=== PATIENT | female | born 1995 | race Caucasian/White ===

== ENCOUNTER 2017-06-27 21:51 | Emergency (ER) | payer MEDICAID ==
[~2017-06-27] VITALS: Ht 160 cm; Wt 131.8 kg
[2017-06-27] MEDS ORDERED: KETOROLAC 30 MG/1 ML ONE (22:21)
[2017-06-27] MEDS ORDERED: KETOROLAC 30 MG/1 ML IM ONE (22:30)
[2017-06-28 00:11] VITALS: BP 117/82
== END 2017-06-28 01:43 | disposition home or self-care (01) ==
LOC: ED 22:39
DX: S82.401A Unspecified fracture of shaft of right fibula, initial encounter for closed fracture (principal); X58.XXXA Exposure to other specified factors, initial encounter; Y93.89 Activity, other specified; Y99.8 Other external cause status; Y92.89 Other specified places as the place of occurrence of the external cause
CPT/HCPCS: 29515; 73610; 96372; 99284; J1885

== ENCOUNTER 2017-06-29 17:12 | Emergency (ER) | payer MEDICAID ==
[~2017-06-29] VITALS: Ht 157.5 cm; Wt 131.8 kg
[2017-06-29 17:53] VITALS: BP 132/83
[2017-06-29] MEDS ORDERED: IBUPROFEN 200 MG TABLET ONE (18:49)
[2017-06-29] MEDS ORDERED: IBUPROFEN 200 MG TABLET PO ONE (19:00)
== END 2017-06-29 20:00 | disposition home or self-care (01) ==
LOC: ED 19:45
DX: S63.521A Sprain of radiocarpal joint of right wrist, initial encounter (principal); G89.11 Acute pain due to trauma; F43.10 Post-traumatic stress disorder, unspecified; W01.0XXA Fall on same level from slipping, tripping and stumbling without subsequent striking against object, initial encounter; Y93.89 Activity, other specified; Y92.009 Unspecified place in unspecified non-institutional (private) residence as the place of occurrence of the external cause; Y99.8 Other external cause status
CPT/HCPCS: 99284

== ENCOUNTER 2017-11-23 17:56 | Emergency (ER) | payer MEDICAID ==
[~2017-11-23] VITALS: Ht 162.6 cm; Wt 144.7 kg
[2017-11-23 18:56] VITALS: BP 147/93
== END 2017-11-23 19:00 | disposition home or self-care (01) ==
LOC: ED 18:25
DX: S63.511A Sprain of carpal joint of right wrist, initial encounter (principal); S60.222A Contusion of left hand, initial encounter; F43.10 Post-traumatic stress disorder, unspecified; W19.XXXA Unspecified fall, initial encounter; Y93.89 Activity, other specified; Y92.410 Unspecified street and highway as the place of occurrence of the external cause; Y99.8 Other external cause status
CPT/HCPCS: 29125; 99284

== ENCOUNTER 2018-02-08 21:05 | Emergency (ER) | payer MEDICAID ==
[~2018-02-08] VITALS: Ht 157.5 cm; Wt 150.0 kg
[2018-02-08 21:12] VITALS: BP 164/102
[2018-02-08] MEDS ORDERED: HYDROcodone/APAP 5/325 TABLET PO STA (22:29)
[2018-02-08] MEDS ORDERED: HYDROcodone/APAP 5/325 TABLET ONE (22:33)
== END 2018-02-09 01:38 | disposition home or self-care (01) ==
LOC: ED 23:59
DX: S16.1XXA Strain of muscle, fascia and tendon at neck level, initial encounter (principal); S63.522A Sprain of radiocarpal joint of left wrist, initial encounter; S93.492A Sprain of other ligament of left ankle, initial encounter; J45.909 Unspecified asthma, uncomplicated; W01.0XXA Fall on same level from slipping, tripping and stumbling without subsequent striking against object, initial encounter; Y93.89 Activity, other specified; Y92.488 Other paved roadways as the place of occurrence of the external cause; Y99.8 Other external cause status
CPT/HCPCS: 29515; 72050; 72072; 82962; 99284

== ENCOUNTER 2018-06-09 17:51 | Emergency (ER) | payer MEDICAID ==
[~2018-06-09] VITALS: Ht 157.5 cm; Wt 141.2 kg
[2018-06-09 18:17] LABS: BASOPHILS # (AUTO) 0.02 x10^3/uL (0-0.1); BASOPHILS % (AUTO) 0 % (0-1); EOSINOPHILS # (AUTO) 0.34 x10^3/uL (0-0.4); EOSINOPHILS % (AUTO) 3 % (1-7); LYMPHOCYTES # (AUTO) 1.91 x10^3/uL (1-3.4); LYMPHOCYTES % (AUTO) 19 % (22-44); MD NO; MEAN CORPUSCULAR HGB CONC 34.6 g/dL (32.4-35.8); MEAN CORPUSCULAR VOLUME 86.9 fL (80-100); MEAN PLATELET VOLUME 7.8 fL (7.4-10.4); MONOCYTES # (AUTO) 0.36 x10^3/uL (0.2-0.8); MONOCYTES % (AUTO) 4 % (2-9); NEUTROPHILS # (AUTO) 7.45 x10^3/uL (1.8-6.8); NEUTROPHILS % (AUTO) 74 % (42-75); PLATELET COUNT 350 x10^3/uL (130-400); RED BLOOD COUNT 5.31 x10^6/uL (3.82-5.3); RED CELL DISTRIBUTION WIDTH 13.6 % (9.6-15.2)
[2018-06-09 18:27] LABS: ALANINE AMINOTRANSFERASE 94 U/L (12-78); ALBUMIN 3.5 g/dL (3.4-5.0); ANION GAP 7 mmol/L (5-15); CALCIUM 8.7 mg/dL (8.5-10.1); CHLORIDE 110 mmol/L (98-107); CREATININE 0.91 mg/dL (0.55-1.02)
[2018-06-09 18:29] LABS: ALKALINE PHOSPHATASE 90 U/L (45-117); BILIRUBIN,TOTAL 0.3 mg/dL (0.2-1.0); TOTAL PROTEIN 7.1 g/dL (6.4-8.2)
[2018-06-09] MEDS ORDERED: ONDANSETRON ODT 4 MG ONE (18:48)
[2018-06-09 18:58] LABS: MICROSCOPIC INDICATED
[2018-06-09 18:59] LABS: CULTURE INDICATED? NO
[2018-06-09] MEDS ORDERED: ONDANSETRON ODT 4 MG PO ONE (19:00)
[2018-06-09 19:32] VITALS: BP 168/95
== END 2018-06-09 19:35 | disposition home or self-care (01) ==
LOC: ED 19:20
DX: H92.03 Otalgia, bilateral (principal); M54.5 Low back pain; R30.0 Dysuria; R39.15 Urgency of urination; R30.9 Painful micturition, unspecified; F31.9 Bipolar disorder, unspecified; F41.1 Generalized anxiety disorder; F43.10 Post-traumatic stress disorder, unspecified; Z90.89 Acquired absence of other organs
CPT/HCPCS: 36415; 80053; 81001; 81025; 85025; 99283; Q0162

== ENCOUNTER 2018-07-06 10:31 | Emergency (ER) | payer MEDICAID ==
[~2018-07-06] VITALS: Ht 157.5 cm; Wt 140.0 kg
[2018-07-06] MEDS ORDERED: ALBUTEROL SULFATE 2.5 MG/3 ML NPPB ONE ×2 (11:00→13:00)
[2018-07-06] MEDS ORDERED: ALBUTEROL/IPRATROPIUM 2.5MG/0.5MG, 3 ML NPPB ONE (11:00)
[2018-07-06] MEDS ORDERED: ALBUTEROL/IPRATROPIUM 2.5MG/0.5MG, 3 ML ONE (11:37)
[2018-07-06] MEDS ORDERED: ALBUTEROL SULFATE 2.5 MG/3 ML ONE ×2 (11:42→12:59)
[2018-07-06] MEDS ORDERED: PROMETHAZINE 25 MG/ML, 1ML IM ONE (12:00)
[2018-07-06] MEDS ORDERED: PROMETHAZINE 25 MG/ML, 1ML ONE (12:26)
--- NOTE | 2018-07-06 13:02 | NUR ---
RT AT BEDSIDE FOR REPEAT TX.
[2018-07-06 13:04] VITALS: BP 37/88
--- NOTE | 2018-07-06 13:05 | NUR ---
D/C PER MD AFTER BREATHING TX.
[2018-07-07] MEDS ORDERED: PROM25TA10 PO (20:01)
[2018-07-07] MEDS ORDERED: MONT10TA9 PO (20:01)
[2018-07-07] MEDS ORDERED: PRED20TA PO (20:01)
[2018-07-07] MEDS ORDERED: CETI10TA18 PO (20:01)
[2018-07-07] MEDS ORDERED: PRAZ5CAP2 PO (20:01)
[2018-07-07] MEDS ORDERED: FLUT1BLS INH (20:01)
[2018-07-07] MEDS ORDERED: EPIN0.3P3 IM (20:01)
[2018-07-07] MEDS ORDERED: OMEP-110 PO (20:01)
[2018-07-07] MEDS ORDERED: FLUT15.88 NAS (20:01)
[2018-07-07] MEDS ORDERED: LAMO200T2 PO (20:01)
[2018-07-07] MEDS ORDERED: ONDA4TAB13 SL (20:01)
[2018-07-07] MEDS ORDERED: QUET100T PO (20:01)
[2018-07-07] MEDS ORDERED: RANI150T4 PO (20:01)
[2018-07-07] MEDS ORDERED: SERT100T5 PO (20:01)
[2018-07-07] MEDS ORDERED: DICL50TA4 PO (20:01)
[2018-07-07] MEDS ORDERED: CLON1TAB11 PO (20:01)
== END 2018-07-06 13:40 | disposition home or self-care (01) ==
LOC: ED 12:59
DX: J20.8 Acute bronchitis due to other specified organisms (principal); J01.80 Other acute sinusitis; J45.909 Unspecified asthma, uncomplicated; F31.9 Bipolar disorder, unspecified; F43.10 Post-traumatic stress disorder, unspecified; Z87.891 Personal history of nicotine dependence
CPT/HCPCS: 71046; 94640; 99285; J2550; J7512; J7613; J7620; 96372

== ENCOUNTER 2018-07-07 17:52 | Observation (INO) | payer MEDICAID ==
[~2018-07-07] VITALS: Ht 159.5 cm; Wt 144.9 kg
[2018-07-07] MEDS ORDERED: ALBUTEROL SULFATE 2.5 MG/3 ML ONE (18:07)
--- NOTE | 2018-07-07 18:09 | NUR ---
Dr. Merino at bedside to evaluate pt. RT at bedside. Pt on all monitors, sinus tach noted, O2 sat 96% on 2L NC.
[2018-07-07] MEDS ORDERED: ALBUTEROL/IPRATROPIUM 2.5MG/0.5MG, 3 ML NPPB SCH (18:30)
[2018-07-07] MEDS ORDERED: ALBUTEROL/IPRATROPIUM 2.5MG/0.5MG, 3 ML ONE (18:56)
--- NOTE | 2018-07-07 19:00 | NUR ---
Pt tearful and requesting ativan for anxiety r/t admission to hospital. Pt trialed on room air after 2nd breathing treatment. O2 sats noted to be 86%, MD notified.
[2018-07-07] MEDS ORDERED: LORazepam 2 MG/ML, 1ML ONE (19:24)
[2018-07-07] MEDS ORDERED: LORazepam 2 MG/ML, 1ML IVPush ONE (19:30)
--- NOTE | 2018-07-07 19:43 | NUR ---
PIV started, pt medicated per SEP. Dr. Calabrese at bedside to evaluate pt for admission.
[2018-07-07] MEDS ORDERED: SODIUM CHLORIDE 0.9% 1,000 ML IV SCH (19:54)
[2018-07-07] MEDS ORDERED: ONDANSETRON 2MG/ML, 2ML IVPush PRN (20:00)
[2018-07-07] MEDS ORDERED: GUAIFENESIN/DM 200-20MG, 10ML UDC PO PRN (20:00)
[2018-07-07] MEDS ORDERED: ACETAMINOPHEN 325 MG TABLET PO PRN (20:00)
[2018-07-07] MEDS ORDERED: ONDANSETRON ODT 4 MG PO PRN (20:00)
[2018-07-07] MEDS ORDERED: PRAZ5CAP2 PO (20:01)
[2018-07-07] MEDS ORDERED: ONDA4TAB13 SL (20:01)
[2018-07-07] MEDS ORDERED: RANI150T4 PO (20:01)
[2018-07-07] MEDS ORDERED: CETI10TA18 PO (20:01)
[2018-07-07] MEDS ORDERED: FLUT15.88 NAS (20:01)
[2018-07-07] MEDS ORDERED: PROM25TA10 PO (20:01)
[2018-07-07] MEDS ORDERED: PRED20TA PO (20:01)
[2018-07-07] MEDS ORDERED: QUET100T PO (20:01)
[2018-07-07] MEDS ORDERED: OMEP-110 PO (20:01)
[2018-07-07] MEDS ORDERED: SERT100T5 PO (20:01)
[2018-07-07] MEDS ORDERED: FLUT1BLS INH (20:01)
[2018-07-07] MEDS ORDERED: MONT10TA9 PO (20:01)
[2018-07-07] MEDS ORDERED: DICL50TA4 PO (20:01)
[2018-07-07] MEDS ORDERED: LAMO200T2 PO (20:01)
[2018-07-07] MEDS ORDERED: CLON1TAB11 PO (20:01)
[2018-07-07] MEDS ORDERED: EPIN0.3P3 IM (20:01)
--- NOTE | 2018-07-07 20:13 | NUR ---
Telephone SBAR report called to Lucio XAVIER. Pt made aware of new assignment.
[2018-07-07] MEDS ORDERED: PROMETHAZINE 25MG TABLET PO PRN (20:30)
[2018-07-07] MEDS ORDERED: FLUTICASONE NASAL SPRAY 16GM NAS PRN (20:30)
[2018-07-07 20:58] VITALS: BP 139/81
[2018-07-07] MEDS ORDERED: MONTELUKAST 10 MG TABLET PO SCH (21:00)
[2018-07-07] MEDS ORDERED: ALBUTEROL SULFATE 2.5 MG/3 ML NPPB SCH ×2 (21:00)
[2018-07-07] MEDS ORDERED: QUETIAPINE 100MG TABLET PO SCH (21:00)
[2018-07-07] MEDS ORDERED: ALBUTEROL/IPRATROPIUM 2.5MG/0.5MG, 3 ML NPPB PRN (21:00)
[2018-07-07] MEDS: BUDESONIDE 0.5 MG/2 ML INHA NPPB SCH (21:00)
[2018-07-07] MEDS: ALBUTEROL/IPRATROPIUM 2.5MG/0.5MG, 3 ML NPPB SCH (21:00)
[2018-07-07] MEDS ORDERED: LAMOTRIGINE 200 MG TABLET PO SCH (21:00)
[2018-07-07] MEDS ORDERED: PRAZOSIN 5 MG CAPSULE PO SCH (21:00)
[2018-07-07] MEDS: SERTRALINE 100MG TABLET PO SCH (21:52)
[2018-07-07] MEDS: FAMOTIDINE 20 MG TABLET PO SCH (21:52)
[2018-07-07] MEDS: DICLOFENAC 50 MG TABLET.DR PO SCH (21:53)
[2018-07-07 23:41] LABS: RAPID INFLUENZA A Negative (Negative); RAPID INFLUENZA B Negative (Negative)
[2018-07-08] MEDS ORDERED: TRAZODONE 50MG TABLET PO ONE (00:30)
[2018-07-08 00:41] VITALS: BP 130/75
[2018-07-08] MEDS: ALBUTEROL/IPRATROPIUM 2.5MG/0.5MG, 3 ML NPPB SCH ×3 (02:00→09:00)
[2018-07-08 07:22] VITALS: BP 116/76
[2018-07-08] MEDS ORDERED: FLUTICASONE/VILANTEROL 200-25MCG/INH INH SCH (09:00)
[2018-07-08] MEDS ORDERED: OMEPRAZOLE 20 MG CAPSULE.DR PO SCH (09:00)
[2018-07-08] MEDS ORDERED: MONTELUKAST 10 MG TABLET PO SCH (09:00)
[2018-07-08] MEDS ORDERED: PRAZOSIN 5 MG CAPSULE PO SCH (09:00)
[2018-07-08] MEDS: BUDESONIDE 0.5 MG/2 ML INHA NPPB SCH (09:00)
[2018-07-08] MEDS ORDERED: CETIRIZINE 10 MG TABLET PO SCH (09:00)
[2018-07-08] MEDS ORDERED: CYCL-259 PO (09:11)
[2018-07-08] MEDS: SERTRALINE 100MG TABLET PO SCH (09:38)
[2018-07-08] MEDS: DICLOFENAC 50 MG TABLET.DR PO SCH (09:38)
[2018-07-08] MEDS: FAMOTIDINE 20 MG TABLET PO SCH (09:38)
== END 2018-07-08 12:45 | disposition home or self-care (01) ==
LOC: ED 18:56 → EDIP 19:40 → INTOOBSV 19:40 → SUATTDRO 19:53 → 3NE 20:29 → DCLOUNGE 07-08 12:35
PROVIDERS: ADMIT Hospitalist; ATTEND Hospitalist
DX: J45.41 Moderate persistent asthma with (acute) exacerbation (principal); J40 Bronchitis, not specified as acute or chronic; F12.90 Cannabis use, unspecified, uncomplicated; F31.9 Bipolar disorder, unspecified; F43.10 Post-traumatic stress disorder, unspecified; Z23 Encounter for immunization
CPT/HCPCS: 87400; 90471; 90656; 94640; 96374; 99284; G0378; J2060; J7030; J7512; J7620; J7626

== ENCOUNTER 2018-11-20 20:57 | Emergency (ER) | payer MEDICAID ==
[~2018-11-20] VITALS: Ht 157.5 cm; Wt 137.6 kg
[~2018-11-20 20:57] MED LIST: CETI10TA18 PO; CLON1TAB11 PO; CYCL-259 PO; DICL50TA4 PO; EPIN0.3P3 IM; FLUT15.88 NAS; FLUT1BLS INH; LAMO200T2 PO; MONT10TA9 PO; OMEP-110 PO; ONDA4TAB13 SL; PRAZ5CAP2 PO; PRED20TA PO; PROM25TA10 PO; QUET100T PO; RANI150T4 PO; SERT100T32 PO
[2018-11-20 21:09] VITALS: BP 152/100
[2018-11-20] MEDS ORDERED: PANTOPRAZOLE 20MG TABLET ONE (21:29)
[2018-11-20] MEDS ORDERED: PROMETHAZINE 25 MG/ML, 1ML ONE (21:29)
[2018-11-20] MEDS ORDERED: ONDANSETRON ODT 4 MG ONE ×2 (21:29→21:42)
[2018-11-20] MEDS ORDERED: DICYCLOMINE 10 MG/ML, 2ML ONE (21:29)
[2018-11-20] MEDS ORDERED: PROMETHAZINE 25 MG/ML, 1ML IM ONE (21:30)
[2018-11-20] MEDS ORDERED: DICYCLOMINE 10 MG/ML, 2ML IM ONE (21:30)
[2018-11-20] MEDS ORDERED: PANTOPRAZOLE 20MG TABLET PO ONE (21:30)
[2018-11-20] MEDS ORDERED: ONDANSETRON ODT 4 MG PO ONE (21:30)
[2018-11-20 21:45] LABS: BASOPHILS # (AUTO) 0.08 x10^3/uL (0-0.1); BASOPHILS % (AUTO) 1 % (0-1); EOSINOPHILS # (AUTO) 0.02 x10^3/uL (0-0.4); EOSINOPHILS % (AUTO) 0 % (1-7); LYMPHOCYTES # (AUTO) 1.18 x10^3/uL (1-3.4); LYMPHOCYTES % (AUTO) 10 % (22-44); MD NO; MEAN CORPUSCULAR HGB CONC 32.2 g/dL (32.4-35.8); MEAN PLATELET VOLUME 7.8 fL (7.4-10.4); MONOCYTES # (AUTO) 0.26 x10^3/uL (0.2-0.8); MONOCYTES % (AUTO) 2 % (2-9); NEUTROPHILS # (AUTO) 10.87 x10^3/uL (1.8-6.8); NEUTROPHILS % (AUTO) 88 % (42-75); PLATELET COUNT 349 x10^3/uL (130-400); RED CELL DISTRIBUTION WIDTH 14.4 % (9.6-15.2)
--- NOTE | 2018-11-20 21:49 | NUR ---
pt in room with partner at bedside. pt medicated per order, ua sent.
[2018-11-20 21:55] LABS: ALANINE AMINOTRANSFERASE 60 U/L (12-78); ALBUMIN 3.7 g/dL (3.4-5.0); ANION GAP 9 mmol/L (5-15); CALCIUM 8.8 mg/dL (8.5-10.1); CHLORIDE 109 mmol/L (98-107); CREATININE 0.88 mg/dL (0.55-1.02)
[2018-11-20 21:57] LABS: MICROSCOPIC AUTO
[2018-11-20 21:59] LABS: CULTURE INDICATED? YES
[2018-11-20 22:00] LABS: ALKALINE PHOSPHATASE 83 U/L (45-117); TOTAL PROTEIN 7.8 g/dL (6.4-8.2)
[2018-11-20 22:01] LABS: BILIRUBIN,TOTAL < 0.1 mg/dL (0.2-1.0)
== END 2018-11-20 22:55 | disposition home or self-care (01) ==
LOC: ED 22:12
DX: R10.84 Generalized abdominal pain (principal); R11.2 Nausea with vomiting, unspecified; J45.909 Unspecified asthma, uncomplicated
CPT/HCPCS: 36415; 74022; 80053; 81001; 83690; 84703; 85025; 87086; 93005; 96372; 99284; J0500; J2550; Q0162

== ENCOUNTER 2018-12-02 11:46 | Emergency (ER) | payer MEDICAID ==
[~2018-12-02] VITALS: Ht 160 cm; Wt 136.9 kg
[2018-12-02] MEDS ORDERED: ONDANSETRON 2MG/ML, 2ML ONE (12:19)
[2018-12-02] MEDS ORDERED: FAMOTIDINE 20 MG/2 ML ONE (12:19)
[2018-12-02 12:28] LABS: BASOPHILS # (AUTO) 0.05 x10^3/uL (0-0.1); BASOPHILS % (AUTO) 0 % (0-1); EOSINOPHILS # (AUTO) 0.89 x10^3/uL (0-0.4); EOSINOPHILS % (AUTO) 7 % (1-7); LYMPHOCYTES # (AUTO) 1.68 x10^3/uL (1-3.4); LYMPHOCYTES % (AUTO) 14 % (22-44); MD NO; MEAN CORPUSCULAR HEMOGLOBIN 26.8 pg (27.0-34.8); MEAN CORPUSCULAR HGB CONC 32.7 g/dL (32.4-35.8); MEAN CORPUSCULAR VOLUME 82.2 fL (80-100); MEAN PLATELET VOLUME 7.5 fL (7.4-10.4); MONOCYTES % (AUTO) 2 % (2-9); NEUTROPHILS # (AUTO) 9.33 x10^3/uL (1.8-6.8); NEUTROPHILS % (AUTO) 76 % (42-75); PLATELET COUNT 282 x10^3/uL (130-400); RED BLOOD COUNT 5.79 x10^6/uL (3.82-5.3)
[2018-12-02] MEDS ORDERED: FAMOTIDINE 20 MG/2 ML IVP ONE (12:30)
[2018-12-02] MEDS ORDERED: ONDANSETRON 2MG/ML, 2ML IVPush ONE (12:30)
[2018-12-02] MEDS ORDERED: SODIUM CHLORIDE FLUSH 10ML SYR IVF ONE (12:30)
[2018-12-02] MEDS ORDERED: SODIUM CHLORIDE 0.9% 1,000ML IVBOLUS ONE (12:30)
[2018-12-02 12:39] LABS: ALBUMIN 3.6 g/dL (3.4-5.0); ANION GAP 7 mmol/L (5-15); CALCIUM 8.8 mg/dL (8.5-10.1); CHLORIDE 106 mmol/L (98-107)
[2018-12-02 12:44] LABS: ALANINE AMINOTRANSFERASE 51 U/L (12-78); ALKALINE PHOSPHATASE 94 U/L (45-117); BILIRUBIN,TOTAL 0.4 mg/dL (0.2-1.0); CREATININE 0.86 mg/dL (0.55-1.02); TOTAL PROTEIN 7.6 g/dL (6.4-8.2)
--- NOTE | 2018-12-02 13:08 | NUR ---
pt in bed at this time. iv access established. ns bolus and pt medicater per order. no episodes of n/v/d while in the room. pt states stomach feels uneasy. pt expresses no wants or needs at this time. room lighting lowered at pt request. call light in reach and bed is low and locked. pt encouraged to call rn for any needs or concerns.
[2018-12-02 13:31] VITALS: BP 130/89
[2018-12-02 13:59] LABS: MICROSCOPIC INDICATED
[2018-12-02 14:00] LABS: CULTURE INDICATED? YES
[2018-12-02] MEDS ORDERED: OMNIPAQUE 350 MG/ML, 150 ML BOTTLE ONE (14:11)
== END 2018-12-02 15:17 | disposition home or self-care (01) ==
LOC: ED 12:17
DX: R11.2 Nausea with vomiting, unspecified (principal); R19.7 Diarrhea, unspecified; J45.909 Unspecified asthma, uncomplicated; Z87.891 Personal history of nicotine dependence
CPT/HCPCS: 36415; 74177; 80053; 81001; 83690; 84703; 85025; 87086; 96361; 96374; 96375; 99284; J2405; J3490; J7030; Q9967

== ENCOUNTER 2018-12-30 10:04 | Emergency (ER) | payer MEDICAID ==
[~2018-12-30] VITALS: Ht 157.5 cm; Wt 137.4 kg
--- NOTE | 2018-12-30 10:21 | NUR ---
pt given gown.
[2018-12-30] MEDS ORDERED: SODIUM CHLORIDE FLUSH 10ML SYR IVF ONE (10:30)
[2018-12-30] MEDS ORDERED: FAMOTIDINE 20 MG/2 ML IVP ONE (10:30)
[2018-12-30] MEDS ORDERED: ONDANSETRON 2MG/ML, 2ML IVPush ONE (10:30)
[2018-12-30] MEDS ORDERED: MAALOX/HYOSCYAMINE/LIDOCAINE 45 ML BTL PO ONE (10:30)
--- NOTE | 2018-12-30 10:34 | NUR ---
23 Y/O FEMALE PRESENTS TO ED WITH C/O EPIGASTRIC PAIN X 3 DAYS. PER PT "I'VE HAD THIS PAIN FOR 3 DAYS. I DIDN'T COME IN SOONER BECAUSE I WAS JUST HERE IN NOV[place]." PT NOW TEARFUL. WHEN PT WAS GIVEN GOWN, SHE WAS SITTING ON GURNEY, NO TEARS, ON CELL PHONE., SHE WAS AMBULATORY TO ROOM. PT PLACED ON CONT PULSE OX, NIBP. NO C/O V/D, TRAUMA, SYNCOPE, CP, SOB.
[2018-12-30 10:54] LABS: BASOPHILS # (AUTO) 0.01 x10^3/uL (0-0.1); BASOPHILS % (AUTO) 0 % (0-1); EOSINOPHILS # (AUTO) 0.44 x10^3/uL (0-0.4); EOSINOPHILS % (AUTO) 4 % (1-7); LYMPHOCYTES # (AUTO) 1.45 x10^3/uL (1-3.4); LYMPHOCYTES % (AUTO) 12 % (22-44); MD NO; MEAN CORPUSCULAR HEMOGLOBIN 27.3 pg (27.0-34.8); MEAN CORPUSCULAR VOLUME 82.7 fL (80-100); MEAN PLATELET VOLUME 8.1 fL (7.4-10.4); MONOCYTES % (AUTO) 2 % (2-9); NEUTROPHILS # (AUTO) 10.03 x10^3/uL (1.8-6.8); NEUTROPHILS % (AUTO) 82 % (42-75); PLATELET COUNT 243 x10^3/uL (130-400); RED CELL DISTRIBUTION WIDTH 15.1 % (9.6-15.2)
[2018-12-30] MEDS ORDERED: ONDANSETRON 2MG/ML, 2ML ONE (11:03)
[2018-12-30] MEDS ORDERED: FAMOTIDINE 20 MG/2 ML ONE (11:04)
[2018-12-30] MEDS ORDERED: MAALOX/HYOSCYAMINE/LIDOCAINE 45 ML BTL ONE (11:04)
[2018-12-30 11:08] LABS: ALBUMIN 3.4 g/dL (3.4-5.0); ANION GAP 6 mmol/L (5-15); CALCIUM 8.4 mg/dL (8.5-10.1); CHLORIDE 106 mmol/L (98-107)
[2018-12-30 11:14] LABS: ALANINE AMINOTRANSFERASE 46 U/L (12-78); ALKALINE PHOSPHATASE 79 U/L (45-117); BILIRUBIN,TOTAL 0.4 mg/dL (0.2-1.0); CREATININE 0.74 mg/dL (0.55-1.02); TOTAL PROTEIN 7.1 g/dL (6.4-8.2)
--- NOTE | 2018-12-30 11:29 | NUR ---
PT RESTING ON GURNEY. NO ACUTE DISTRESS NOTED. MEDICATIONS ADMINISTERED PER EMAR. PT NOT TEARFUL AT THIS TIME. NO NEEDS REQUESTED AT THIS TIME.
--- NOTE | 2018-12-30 11:48 | NUR ---
PT AMBULATORY WITH STEADY GAIT FROM BATHROOM. UA SENT TO LAB. NO ACUTE DI STRESS NOTED. NO NEEDS REQUESTED AT THIS TIME.
[2018-12-30 11:49] VITALS: BP 131/89
[2018-12-30 12:12] LABS: MICROSCOPIC INDICATED
[2018-12-30 12:37] LABS: CULTURE INDICATED? NO
== END 2018-12-30 12:56 | disposition home or self-care (01) ==
LOC: ED 11:34
DX: K52.9 Noninfective gastroenteritis and colitis, unspecified (principal); J45.909 Unspecified asthma, uncomplicated; Z90.49 Acquired absence of other specified parts of digestive tract
CPT/HCPCS: 36415; 80053; 81001; 83690; 84703; 85025; 96374; 96375; 99283; J2405; J3490

== ENCOUNTER 2019-02-14 06:48 | Emergency (ER) | payer MEDICAID ==
[~2019-02-14] VITALS: Ht 160 cm; Wt 140.3 kg
[2019-02-14 06:49] VITALS: BP 151/96
== END 2019-02-14 08:18 | disposition home or self-care (01) ==
LOC: ED 08:03
DX: S73.101A Unspecified sprain of right hip, initial encounter (principal); S83.91XA Sprain of unspecified site of right knee, initial encounter; S93.401A Sprain of unspecified ligament of right ankle, initial encounter; E66.01 Morbid (severe) obesity due to excess calories; F25.9 Schizoaffective disorder, unspecified; F31.9 Bipolar disorder, unspecified; F43.10 Post-traumatic stress disorder, unspecified; Z68.43 Body mass index [BMI] 50.0-59.9, adult; J45.909 Unspecified asthma, uncomplicated; Z79.899 Other long term (current) drug therapy; Z88.8 Allergy status to other drugs, medicaments and biological substances; Z90.49 Acquired absence of other specified parts of digestive tract; W01.0XXA Fall on same level from slipping, tripping and stumbling without subsequent striking against object, initial encounter; Y93.89 Activity, other specified; Y92.009 Unspecified place in unspecified non-institutional (private) residence as the place of occurrence of the external cause; Y99.8 Other external cause status
CPT/HCPCS: 99283

== ENCOUNTER 2019-05-24 19:50 | Emergency (ER) | payer MEDICAID ==
[~2019-05-24] VITALS: Ht 160 cm; Wt 149.8 kg
[~2019-05-24 19:50] MED LIST changes: +FLUT15.845 NAS; -FLUT15.88 NAS
[2019-05-24] MEDS ORDERED: LORA-446 PO (20:36)
[2019-05-24] MEDS ORDERED: SUCR1TAB33 PO (20:36)
[2019-05-24] MEDS ORDERED: METF500T17 PO (20:36)
[2019-05-24] MEDS ORDERED: BACL20TA PO (20:36)
--- NOTE | 2019-05-24 20:37 | NUR ---
HIMANSHU IN ROOM WITH PARTENERS. REQUESTS TO BE CALLED "MIO". IDS GENDERQUEER. LAYING IN HOSPITAL BED. CALL LIGHT WITHIN REACH.
[2019-05-24 21:23] LABS: BASOPHILS # (AUTO) 0.04 x10^3/uL (0-0.1); BASOPHILS % (AUTO) 0 % (0-1); EOSINOPHILS # (AUTO) 0.28 x10^3/uL (0-0.4); EOSINOPHILS % (AUTO) 3 % (1-7); LYMPHOCYTES # (AUTO) 2.42 x10^3/uL (1-3.4); LYMPHOCYTES % (AUTO) 24 % (22-44); MD NO; MEAN CORPUSCULAR HEMOGLOBIN 23.6 pg (27.0-34.8); MEAN CORPUSCULAR HGB CONC 32.2 g/dL (32.4-35.8); MEAN CORPUSCULAR VOLUME 73.2 fL (80-100); MEAN PLATELET VOLUME 7.9 fL (7.4-10.4); MONOCYTES # (AUTO) 0.39 x10^3/uL (0.2-0.8); MONOCYTES % (AUTO) 4 % (2-9); NEUTROPHILS # (AUTO) 6.76 x10^3/uL (1.8-6.8); NEUTROPHILS % (AUTO) 68 % (42-75); PLATELET COUNT 293 x10^3/uL (130-400); RED BLOOD COUNT 5.08 x10^6/uL (3.82-5.3); RED CELL DISTRIBUTION WIDTH 16.2 % (9.6-15.2)
[2019-05-24] MEDS ORDERED: MAALOX/HYOSCYAMINE/LIDOCAINE 45 ML BTL ONE (21:29)
[2019-05-24] MEDS ORDERED: MAALOX/HYOSCYAMINE/LIDOCAINE 45 ML BTL PO ONE (21:30)
[2019-05-24 21:35] LABS: ALANINE AMINOTRANSFERASE 79 U/L (12-78); ALBUMIN 3.4 g/dL (3.4-5.0); ANION GAP 6 mmol/L (5-15); CHLORIDE 103 mmol/L (98-107); CREATININE 0.96 mg/dL (0.55-1.02)
[2019-05-24 21:37] LABS: ALKALINE PHOSPHATASE 75 U/L (45-117); BILIRUBIN,TOTAL 0.2 mg/dL (0.2-1.0); TOTAL PROTEIN 7.4 g/dL (6.4-8.2)
[2019-05-24 22:40] VITALS: BP 131/79
== END 2019-05-24 22:41 | disposition home or self-care (01) ==
LOC: ED 22:05
DX: K29.00 Acute gastritis without bleeding (principal); E11.65 Type 2 diabetes mellitus with hyperglycemia; F31.9 Bipolar disorder, unspecified; J45.909 Unspecified asthma, uncomplicated; F20.9 Schizophrenia, unspecified; F43.10 Post-traumatic stress disorder, unspecified; E66.01 Morbid (severe) obesity due to excess calories; Z68.43 Body mass index [BMI] 50.0-59.9, adult
CPT/HCPCS: 36415; 71046; 80053; 83690; 85025; 93005; 99284

== ENCOUNTER 2019-06-13 14:01 | Emergency (ER) | payer MEDICAID ==
[~2019-06-13] VITALS: Ht 160 cm; Wt 144.6 kg
[~2019-06-13 14:01] MED LIST changes: +BACL20TA PO; +LORA-446 PO; +METF500T17 PO; +SUCR1TAB33 PO
[2019-06-13 14:25] VITALS: BP 152/107
--- NOTE | 2019-06-13 14:29 | NUR ---
PT HERE FOR SUDDEN ONSET OF SHARP SHOOTING PAIN IN BACK THAT LED TO HAND AND FEET NUMBNESS. PT REPORTS SITTING ON COUCH WHILE THIS OCCURED. PT AMBULATED WITHOUT DIFFICULTY OR SHORTNESS OF BREATH. PT WALKED TO ROOM, ON MONITORS. CALL LIGHT IN REACH. AWAITING FURTHER ORDERS AT THIS TIME.
[2019-06-13] MEDS ORDERED: LORazepam 1MG TABLET ONE (14:42)
--- NOTE | 2019-06-13 14:45 | NUR ---
PT MEDCIATED PER EMAR.
[2019-06-13] MEDS ORDERED: LORazepam 1MG TABLET PO ONE (15:00)
[2019-06-13 15:06] LABS: ANION GAP 6 mmol/L (5-15); CALCIUM 8.6 mg/dL (8.5-10.1); CHLORIDE 100 mmol/L (98-107); CREATININE 0.93 mg/dL (0.55-1.02)
[2019-06-13] MEDS ORDERED: INSULIN REGULAR 100 UNITS/ML, 3ML VIAL SQ-INSULIN ONE (15:15)
[2019-06-13] MEDS ORDERED: INSULIN SINGLE DOSE, ER ONE (15:19)
--- NOTE | 2019-06-13 15:25 | NUR ---
PT GIVEN INSULIN.
[2019-06-13 15:29] LABS: BASOPHILS # (AUTO) 0.09 x10^3/uL (0-0.1); BASOPHILS % (AUTO) 1 % (0-1); EOSINOPHILS # (AUTO) 0.24 x10^3/uL (0-0.4); EOSINOPHILS % (AUTO) 3 % (1-7); LYMPHOCYTES # (AUTO) 1.99 x10^3/uL (1-3.4); LYMPHOCYTES % (AUTO) 24 % (22-44); MD NO; MEAN CORPUSCULAR HGB CONC 30.8 g/dL (32.4-35.8); MEAN CORPUSCULAR VOLUME 71.6 fL (80-100); MEAN PLATELET VOLUME 8.1 fL (7.4-10.4); MONOCYTES # (AUTO) 0.23 x10^3/uL (0.2-0.8); MONOCYTES % (AUTO) 3 % (2-9); NEUTROPHILS # (AUTO) 5.63 x10^3/uL (1.8-6.8); NEUTROPHILS % (AUTO) 69 % (42-75); PLATELET COUNT 275 x10^3/uL (130-400); RED BLOOD COUNT 5.49 x10^6/uL (3.82-5.3)
--- NOTE | 2019-06-13 16:15 | NUR ---
NEW BG COMPLETED, PA INFORMED.
--- NOTE | 2019-06-13 16:35 | NUR ---
Pt d/c'd to selfcare. Pt educated on diabetes management, proper f/u, prescriptions and community resources. Pt ambulated out of ER.
[2019-06-13 16:40] LABS: ACETONE, SERUM Trace (10mg/dL) mg/dL (Negative)
== END 2019-06-13 16:34 ==
LOC: ED 16:28
DX: E11.65 Type 2 diabetes mellitus with hyperglycemia (principal); F41.1 Generalized anxiety disorder; F20.9 Schizophrenia, unspecified; F31.9 Bipolar disorder, unspecified; F43.10 Post-traumatic stress disorder, unspecified; Z87.19 Personal history of other diseases of the digestive system; Z72.9 Problem related to lifestyle, unspecified; Z79.84 Long term (current) use of oral hypoglycemic drugs; Z79.899 Other long term (current) drug therapy; Z90.49 Acquired absence of other specified parts of digestive tract
CPT/HCPCS: 36415; 80048; 82010; 82800; 82962; 85025; 96372; 99283; J1815

== ENCOUNTER 2019-07-28 23:03 | Emergency (ER) | payer MEDICAID ==
[~2019-07-28] VITALS: Ht 160 cm; Wt 140.8 kg
[2019-07-28 23:08] VITALS: BP 129/75
== END 2019-07-29 01:03 | disposition home or self-care (01) ==
LOC: ED 07-29 00:11
DX: J02.8 Acute pharyngitis due to other specified organisms (principal); H60.501 Unspecified acute noninfective otitis externa, right ear; E11.9 Type 2 diabetes mellitus without complications; Z90.49 Acquired absence of other specified parts of digestive tract
CPT/HCPCS: 87081; 87880; 99283

== ENCOUNTER 2019-08-09 16:20 | Emergency (ER) | payer MEDICAID ==
[~2019-08-09] VITALS: Ht 157.5 cm; Wt 143.4 kg
[~2019-08-09 16:20] MED LIST changes: -LAMO200T2 PO; +LAMO200T6 PO; +MONT10TA11 PO; -MONT10TA9 PO
[2019-08-09 16:29] VITALS: BP 168/120
[2019-08-09] MEDS ORDERED: KETOROLAC 60 MG/2 ML ONE (19:49)
[2019-08-09] MEDS ORDERED: KETOROLAC 30 MG/1 ML IM ONE (20:00)
--- NOTE | 2019-08-09 20:17 | NUR ---
PT MEDICATED PER EMAR. 5 RIGHTS ADDRESSED.
--- NOTE | 2019-08-09 20:25 | NUR ---
Patient/Caregiver given discharge instructions and they have confirmed that they understand the instructions. Patient ambulatory with steady gait.
== END 2019-08-09 20:33 | disposition home or self-care (01) ==
LOC: EDSEX 20:29 → ED 20:29
DX: M94.0 Chondrocostal junction syndrome [Tietze] (principal); R06.02 Shortness of breath; R07.9 Chest pain, unspecified; E11.9 Type 2 diabetes mellitus without complications; Z90.89 Acquired absence of other organs; Z90.49 Acquired absence of other specified parts of digestive tract
CPT/HCPCS: 71046; 93005; 96372; 99283; J1885

== ENCOUNTER 2019-12-02 19:41 | Emergency (ER) | payer MEDICAID ==
[~2019-12-02] VITALS: Ht 160 cm; Wt 134.5 kg
[2019-12-02] MEDS ORDERED: HYDROcodone/APAP 5/325 TABLET PO ONE ×2 (20:00→21:30)
--- NOTE | 2019-12-02 20:00 | NUR ---
DR. MCALLISTER AWARE OF HR BEING 130 AND WANTS TO SEE IF PAIN MEDICATION WILL HELP LOWER HR.
[2019-12-02] MEDS ORDERED: HYDROcodone/APAP 5/325 TABLET ONE ×2 (20:03→21:34)
--- NOTE | 2019-12-02 21:40 | NUR ---
PAIN MEDICINE REPEATED AND T STILL TACHY AT 130. PT BORMALLY TAKES METOPROLOL AT NOC BUT HAS NOT TAKEN NIGHTLY DOSE. DR. MCALLISTER AWARE OF HR.
--- NOTE | 2019-12-02 22:04 | NUR ---
RECEIVED REPORT FROM MURALI XAVIER, ASSUMING CARE OF PT
[2019-12-02 22:10] LABS: BASOPHILS # (AUTO) 0.02 x10^3/uL (0-0.1); BASOPHILS % (AUTO) 0 % (0-1); EOSINOPHILS # (AUTO) 0.12 x10^3/uL (0-0.4); EOSINOPHILS % (AUTO) 1 % (1-7); LYMPHOCYTES % (AUTO) 20 % (22-44); MD NO; MEAN CORPUSCULAR HEMOGLOBIN 24.3 pg (27.0-34.8); MEAN CORPUSCULAR HGB CONC 32.5 g/dL (32.4-35.8); MEAN CORPUSCULAR VOLUME 74.7 fL (80-100); MEAN PLATELET VOLUME 8.7 fL (7.4-10.4); MONOCYTES # (AUTO) 0.37 x10^3/uL (0.2-0.8); MONOCYTES % (AUTO) 3 % (2-9); NEUTROPHILS # (AUTO) 9.32 x10^3/uL (1.8-6.8); NEUTROPHILS % (AUTO) 76 % (42-75); PLATELET COUNT 338 x10^3/uL (130-400); RED CELL DISTRIBUTION WIDTH 17.6 % (9.6-15.2)
[2019-12-02 22:17] LABS: ALBUMIN 3.4 g/dL (3.4-5.0); ANION GAP 10 mmol/L (5-15); CALCIUM 9.1 mg/dL (8.5-10.1); CHLORIDE 101 mmol/L (98-107); CREATININE 0.93 mg/dL (0.55-1.02)
--- NOTE | 2019-12-02 22:58 | NUR ---
CT CALLED TO FOLLOW UP ON READ, CURRENTLY BEING READ AT THIS TIME
[2019-12-02 23:04] VITALS: BP 133/67
--- NOTE | 2019-12-02 23:04 | NUR ---
REPORT FROM MELLY MATOS RN.
--- NOTE | 2019-12-02 23:07 | NUR ---
REPORT GIVEN TO LORENA
[2019-12-02] MEDS ORDERED: CLINDAMYCIN 300 MG CAPSULE ONE (23:40)
[2019-12-03] MEDS ORDERED: CLINDAMYCIN 300 MG CAPSULE PO ONE
[2019-12-03] MEDS ORDERED: OMNIPAQUE 350 MG/ML, 100ML BOTTLE ONE (21:30)
== END 2019-12-02 23:57 | disposition home or self-care (01) ==
LOC: ED 22:10
DX: K11.20 Sialoadenitis, unspecified (principal); E11.9 Type 2 diabetes mellitus without complications; J45.909 Unspecified asthma, uncomplicated; F20.9 Schizophrenia, unspecified; Z90.49 Acquired absence of other specified parts of digestive tract; Z90.89 Acquired absence of other organs
CPT/HCPCS: 36415; 70487; 80048; 82040; 84703; 85025; 99285; Q9967

== ENCOUNTER 2019-12-05 18:04 | Emergency (ER) | payer MEDICAID ==
[~2019-12-05] VITALS: Ht 160 cm; Wt 135.1 kg
[2019-12-05 18:14] VITALS: BP 107/57
== END 2019-12-05 20:06 | disposition home or self-care (01) ==
LOC: ED 19:20
DX: R22.0 Localized swelling, mass and lump, head (principal); J45.909 Unspecified asthma, uncomplicated; E11.9 Type 2 diabetes mellitus without complications; E66.01 Morbid (severe) obesity due to excess calories; Z68.43 Body mass index [BMI] 50.0-59.9, adult; Z90.89 Acquired absence of other organs; Z90.49 Acquired absence of other specified parts of digestive tract
CPT/HCPCS: 99283

== ENCOUNTER 2020-07-19 16:27 | Emergency (ER) | payer MEDICAID ==
[~2020-07-19] VITALS: Ht 160 cm; Wt 130.0 kg
[~2020-07-19 16:27] MED LIST changes: -MONT10TA11 PO; +MONT10TA96 PO
--- NOTE | 2020-07-19 16:37 | NUR ---
THIS IS A 24 YO F BIB EMS W/ C/O GLF AFTER SMOKING MARIJUANA. PT DENIES LOC/HITTING HEAD/BLOOD THINNERS. NOW HAS C/O RT KNEE AND RT ANKLE PAIN. PT REPORTS TOOK LISINOPRIL AND METOPROLOL THIS MORNING PRESCRIBED. PT HYPOTENSIVE, OTHER VS WDL. PT RESTING ON GURNEY W/ CALL LIGHT IN REACH AND SIDE RAILS UPX2. DROWSY, ANSWERING QUESTIONS APPROPRIATELY. ED MD STUDENT AT BEDSIDE FOR ED EVAL.
--- NOTE | 2020-07-19 17:05 | NUR ---
PT ALSO REPORTS 1MG ATIVAN AT 0900.
--- NOTE | 2020-07-19 17:27 | NUR ---
RAD IN ROOM.
[2020-07-19] MEDS ORDERED: SODIUM CHLORIDE 0.9% 1,000ML IVBOLUS ONE ×2 (17:30→19:00)
--- NOTE | 2020-07-19 17:55 | NUR ---
PIV STARTED, 1L NS BOLUS STARTED. PT RESTING ON GURNEY W/ CALL LIGHT IN REACH AND SIDE RAILS UPX2. PT HYPOTENSIVE, OTHER VS WDL. CONNECTED TO ALL MONITORING. AWAITING XRAY RESULTS.
--- NOTE | 2020-07-19 18:54 | NUR ---
REPORT GIVEN TO RAFIA XAVIER. UPDATED ON POC FOR 2ND L BOLUS, SPLINT AND REASSESS FOR DC. PT BP 94/58, OTHER VS WDL. RESP EVEN AND UNLABORED, NADN.
[2020-07-19 20:04] VITALS: BP 99/58
--- NOTE | 2020-07-19 20:25 | NUR ---
PT AMBULATORY AT BEDSIDE WITH WALKER, STEADY GAIT, ABLE TO BEAR WEIGHT ON INJURED LEG. PT EDUCATED REGARDING ANTIHYPERTENSIVES SHE TAKES AT HOME, NOT TO TAKE THEM ANYMORE UNTIL SHE TALKS TO HER PERSCRIBING DR, DUE TO PT HYPOTENSION HERE IN THE ER. PT ALSO GIVEN REFERRAL FOR OTHO CONSULT. PT VERBALIZED UNDERSTANDING AND AGREES TO FOLLOW UP WITH BOTH DOCTORS. PT DISCHARGED IN PRIVATE VEHICLE WITH FAMILY.
== END 2020-07-19 20:30 | disposition home or self-care (01) ==
LOC: ED 20:22
DX: S93.401A Sprain of unspecified ligament of right ankle, initial encounter (principal); S83.91XA Sprain of unspecified site of right knee, initial encounter; I10 Essential (primary) hypertension; E11.9 Type 2 diabetes mellitus without complications; I95.9 Hypotension, unspecified; W18.30XA Fall on same level, unspecified, initial encounter; Y93.89 Activity, other specified; Y92.89 Other specified places as the place of occurrence of the external cause; Y99.8 Other external cause status
CPT/HCPCS: 29515; 73564; 73610; 73630; 93005; 96360; 96361; 99285; J7030

== ENCOUNTER → 2020-07-23 | Outpatient (CLI) | payer MEDICAID | END | disposition home or self-care (01) | LOC: CFH 13:32 | PROVIDERS: ATTEND Physician Assistant Surgical | DX: S92.151A Displaced avulsion fracture (chip fracture) of right talus, initial encounter for closed fracture (principal); S82.54XA Nondisplaced fracture of medial malleolus of right tibia, initial encounter for closed fracture; X58.XXXA Exposure to other specified factors, initial encounter; Y93.89 Activity, other specified; Y92.89 Other specified places as the place of occurrence of the external cause; Y99.8 Other external cause status ==